=== PATIENT | female | born 1965 | race Caucasian/White ===

== ENCOUNTER 2021-11-04 07:11 | Outpatient (CLI) | payer OTHER | END 2021-11-04 07:14 | disposition home or self-care (01) | LOC: LAB 07:11 | PROVIDERS: ATTEND General Practice | DX: I11.9 Hypertensive heart disease without heart failure (principal); E78.2 Mixed hyperlipidemia; N29 Other disorders of kidney and ureter in diseases classified elsewhere; E07.9 Disorder of thyroid, unspecified; D23.30 Other benign neoplasm of skin of unspecified part of face; Z12.11 Encounter for screening for malignant neoplasm of colon ==

== ENCOUNTER 2021-11-29 10:52 | Outpatient (CLI) | payer OTHER | END 2021-11-29 10:59 | disposition home or self-care (01) | LOC: MAMO-SONO 10:52 | PROVIDERS: ATTEND General Practice | DX: Z12.31 Encounter for screening mammogram for malignant neoplasm of breast (principal); N60.11 Diffuse cystic mastopathy of right breast; N60.12 Diffuse cystic mastopathy of left breast ==

== ENCOUNTER 2022-03-03 07:08 | Outpatient (CLI) | payer OTHER | END 2022-03-03 07:09 | disposition home or self-care (01) | LOC: LAB 07:08 | PROVIDERS: ATTEND General Practice | DX: I11.9 Hypertensive heart disease without heart failure (principal); E78.2 Mixed hyperlipidemia; E11.21 Type 2 diabetes mellitus with diabetic nephropathy; D64.9 Anemia, unspecified; D23.9 Other benign neoplasm of skin, unspecified; E07.9 Disorder of thyroid, unspecified; E55.9 Vitamin D deficiency, unspecified ==

== ENCOUNTER → 2022-06-09 | Emergency (ER) | payer OTHER ==
[~2022-06-09] VITALS: Ht 165.1 cm; Wt 61.2 kg
== END | disposition home or self-care (01) ==
LOC: ER 19:04
DX: S52.532A Colles' fracture of left radius, initial encounter for closed fracture (principal); W16.212A Fall in (into) filled bathtub causing other injury, initial encounter; Y93.9 Activity, unspecified; Y92.018 Other place in single-family (private) house as the place of occurrence of the external cause

== ENCOUNTER 2022-10-10 07:08 | Outpatient (CLI) | payer OTHER | END 2022-10-10 07:09 | disposition home or self-care (01) | LOC: NUCLEAR 07:08 | PROVIDERS: ATTEND Physical Medicine & Rehabilitation | DX: M84.334D Stress fracture, left radius, subsequent encounter for fracture with routine healing (principal); M79.642 Pain in left hand; M24.542 Contracture, left hand; M19.132 Post-traumatic osteoarthritis, left wrist ==